=== PATIENT | male | born 1985 | race African-American/Black ===

== ENCOUNTER 2025-10-25 07:42 | Emergency (ER) | payer MEDICAID, OTHER ==
[~2025-10-25] VITALS: Ht 193 cm; Wt 154.9 kg
--- NOTE | 2025-10-25 08:26 | ED.PDOC ---
Musculoskeletal HPI Comments 40 y/o M, presents to the ED for CC of lower extremity pain. Patient states, he was jogging yesterday (10/24/25) and has now been experiencing right knee pain and swelling as a result. Patient endorses, being unable to bear weight onto his right extremity since, commencement of symptoms. Upon arrival to the ED, patient is hypertensive with a blood pressure of 181/133mmHg. Patient denies any trauma, injury, fall, headache, dizziness, or chest pain. No other symptoms or modifying factors are present at this time. Chief Complaint: Lower Extremity Time Seen by MD: 08:05 Reviewed Notes: Nurses Notes, Medications, Allergies Allergies: Coded Allergies: NO KNOWN ALLERGIES (Unverified , 10/25/25) Home Meds Active Scripts Atenolol (Atenolol) 25 Mg Tab, 25 MG PO Q HS for 30 Days, #30 TAB Prov:CHAVO BORJA MD 10/25/25 Olmesartan Medoxomil (Benicar) 20 Mg Tab, 40 MG PO DAILY for 30 Days, #30 TAB Prov:CHAVO BORJA MD 10/25/25 Naproxen (Naproxen) 375 Mg Tab, 500 MG PO BID for 10 Days, #20 TAB Prov:CHAVO BORJA MD 10/25/25 Information Source: Patient Mode of Arrival: Wheelchair Location: Right Extremity Location: Knee Timing: Days Prehospital treatment: None Severity: Moderate Able to Move Extremity: Yes Bear Weight: No Pain: Moderate Circumstances: Sporting Onset of Symptoms: After Trauma Symptoms: Swelling, Pain Associated signs and symptoms: Knee pain Past Medical History PAST MEDICAL HISTORY: Denies Surgical History: Denies all surgeries Surgical History (Other): left shoulder Family History Family History: Unknown Social History Smoker: Non-Smoker Alcohol: Denies ETOH Use Drugs: Marijuana Lives In: Home Constitutional: denies: chills, diaphoresis, fatigue, fever, malaise, sweats, weakness, others EENTM: denies: blurred vision, double vision, ear bleeding, ear discharge, ear drainage, ear pain, ear ringing, eye pain, eye redness, hearing loss, mouth pain, mouth swelling, nasal discharge, nose bleeding, nose congestion, nose pain, photophobia, tearing, throat pain, throat swelling, voice changes, others Respiratory: denies: cough, hemoptysis, orthopnea, SOB at rest, shortness of breath, SOB with excertion, stridor, wheezing, others Cardiovascular: denies: chest pain, dizzy spells, diaphoresis, Dyspnea on exertion, edema, irregular heart beat, left arm pain, lightheadedness, palpitations, PND, syncope, others Gastrointestinal: denies: abdomen distended, abdominal pain, blood streaked bowels, constipated, diarrhea, dysphagia, difficulty swallowing, hematemesis, melena, nausea, poor appetite, poor fluid intake, rectal bleeding, rectal pain, vomiting, others Genitourinary: denies: burning, dysuria, flank pain, frequency, hematuria, incontinence, penile discharge, penile sore, pain, testicle pain, testicle swelling, urgency, others Neurological: denies: dizziness, fainting, headache, left sided numbness, left sided weakness, numbness, paresthesia, pre-existing deficit, right sided numbness, right sided weakness, seizure, speech problems, tingling, tremors, weakness, others Musculoskeletal: reports: others (right knee pain); denies: back pain, gout, joint pain, joint swelling, muscle pain, muscle stiffness, neck pain Integumetry: denies: bruises, change in color, change in hair/nails, dryness, laceration, lesions, lumps, rash, wounds, others Allergic/Immunocompromised: denies: Difficulty Healing, Frequent Infections, Hives, Itching, others Hematologic/Lymphatic: denies: anemia, blood clots, easy bleeding, easy bruising, swollen glands, others Endocrine: denies: excessive hunger, excessive sweating, excessive thirst, excessive urination, flushing, intolerance to cold, intolerance to heat, unexplained weight gain, unexplained weight loss, others Psychiatric: denies: anxiety, bipolar disorder, depression, hopeless, panic disorder, schizophrenia, sleepless, suicidal, others All Other Systems: Reviewed and Negative Physical Exam General Appearance: Moderate Distress, Obese HEENT: Normal ENT Inspection, PERRL/EOMI Neck: Full Range of Motion, Non-Tender, Normal, Normal Inspection Respiratory: Chest Non-Tender, Lungs Clear, No Accessory Muscle Use, No Respiratory Distress, Normal Breath Sounds Cardiovascular: No Edema, No JVD, No Murmur, No Gallop, Normal Peripheral Pulses, Regular Rate/Rhythm Breast Exam: Deferred Gastrointestinal: No Organomegaly, Non Tender, No Pulsatile Mass, Normal Bowel Sounds, Soft Genitalia: Deferred Pelvic: Deferred Rectal: Deferred Extremities: No calf tenderness, Normal capillary refill, Normal inspection, Normal range of motion, Non-tender, No pedal edema, Swelling, Tender, Other (Right knee) Musculoskeletal : Location: Right Extremity Location: Knee Apperance: Swelling, Limited ROM, Tenderness: Moderate, Other (The pain on the right knee mostly supra pateral and medial side) Neurologic: Alert, 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 Was a procedure done?: No Differential Diagnosis EXT Differential Diagnosis: Sprain, DJD, Strain, Bursitis X-Ray, Labs, Meds, VS Vital Signs Date Time Temp Pulse Resp B/P (MAP) Pulse Ox O2 Delivery O2 Flow Rate FiO2 10/25/25 11:26 85 159/82 10/25/25 11:19 98.1 85 18 159/82 (107) 98 98.1 10/25/25 10:57 89 10/25/25 10:24 98.0 84 18 147/110 (122) 96 98.0 10/25/25 10:20 84 183/133 10/25/25 09:30 182/133 10/25/25 08:28 160/91 10/25/25 08:02 98.9 89 18 161/99 (119) 98.9 10/25/25 07:47 97.4 94 18 181/133 96 97.4 Lab Test 10/25/25 10:06 Range/Units White Blood Count 10.0 4.4-10.8 10^3/uL Red Blood Count 4.41 L 4.5-5.90 10^6/uL Hemoglobin 13.8 13.5-17.5 g/dL Hematocrit 39.7 L 41.0-53.0 % Mean Corpuscular Volume 89.9 80.0-100.0 fL Mean Corpuscular Hemoglobin 31.3 28.0-32.0 pg Mean Corpuscular Hemoglobin Concent 34.8 32.0-36.0 g/dL Red Cell Distribution Width 13.0 11.8-14.3 % Platelet Count 240 140-450 10^3/uL Mean Platelet Volume 8.2 6.9-10.8 fL Neutrophils (%) (Auto) 75.6 37.0-80.0 % Lymphocytes (%) (Auto) 18.4 10.0-50.0 % Monocytes (%) (Auto) 5.0 0.0-12.0 % Eosinophils (%) (Auto) 0.5 0.0-7.0 % Basophils (%) (Auto) 0.5 0.0-2.0 % Neutrophils # (Auto) 7.6 1.6-8.6 10 ^3/uL Lymphocytes # (Auto) 1.8 0.4-5.4 10 ^3/uL Monocytes # (Auto) 0.5 0-1.3 10 ^3/uL Eosinophils # (Auto) 0 0-0.8 10 ^3/uL Basophils # (Auto) 0.1 0-0.2 10 ^3/uL Nucleated Red Blood Cells 0.1 % Sodium Level 141 136-145 mmol/L Potassium Level 4.2 3.5-5.1 mmol/L Chloride Level 109 H 98-107 mmol/L Carbon Dioxide Level 24 20-31 mmol/L Anion Gap 8 5-15 Blood Urea Nitrogen 9 9-23 mg/dL Creatinine 1.11 0.700-1.30 mg/dL Glomerular Filtration Rate Calc 87 >90 mL/min BUN/Creatinine Ratio 8.1 L 10.0-20.0 Serum Glucose 104 74-106 mg/dL Calcium Level 9.6 8.7-10.4 mg/dL Magnesium Level 2.1 1.6-2.6 mg/dL Total Bilirubin 1.0 0.2-1.0 mg/dL Aspartate Amino Transferase (AST) 16 13-40 U/L Alanine Aminotransferase (ALT) 25 7-40 U/L Alkaline Phosphatase 129 H 46-116 U/L Total Protein 8.3 H 5.7-8.2 g/dL Albumin 4.6 3.2-4.8 g/dL Current Medications Medications (Trade) Dose Ordered Sig/Mauro Route Start Time Stop Time Status Last Admin Clonidine HCl (Catapres Tablet) 0.2 mg ONCE ONCE PO 10/25/25 08:15 10/25/25 08:16 DC 10/25/25 08:28 Aspirin 162 mg ONCE ONCE PO 10/25/25 09:45 10/25/25 09:46 DC 10/25/25 09:50 Sodium Chloride 1,000 ml @ 150 mls/hr Q6H40M ONCE IV 10/25/25 09:45 10/25/25 16:24 10/25/25 10:11 Labetalol HCl (Labetalol HCl) 20 mg ONCE ONCE IV 10/25/25 09:45 10/25/25 09:46 DC 10/25/25 10:20 [place] [id number] Ph: [phone] DIAGNOSTIC IMAGING Diagnostic Imaging Report : [id number] Signed PATIENT: AYAN BOWENS ACCT: [id number] UNIT: [id number] : 1985 LOC: ER ROOM / BED: / AGE / SEX: 40 / M ADM STATUS: REG ER SERVICE 7 ORDERING PHYSICIAN: CHAVO BORJA MD PROCEDURE(s): RKN3 - R KNEE 3V XRAY REASON: Right knee pain from joging ORDER NUMBER(s): [id number], ACCESSION NUMBER(s): [id number] EXAM: XY R KNEE 3V XRAY INDICATION: Right knee pain from joging TECHNIQUE: 4 radiographic views of the right knee were obtained. COMPARISON: None FINDINGS/IMPRESSION: No acute fracture or dislocations. Moderate knee effusion. Mild diffuse soft tissue edema. No radiographic foreign body. ATED BY: SONIDO MIX MD DICTATED DATE/TIME: 10/25/25855 SIGNED BY: SONIDO MIX MD SIGNED DATE/TIME: 10/25/25855 CC: X-Ray, Labs, Meds, VS Comment Course in a fast track events for X-ray of the knee shows knee effusion and soft tissue swelling CBC normal BNP negative Chest x-ray normal EKG shows normal sinus rhythm at 89 Blood pressure 159/82 Patient we will be discharged room with an Edgardo wrap Time of 1ST Reevaluation: 08:35 Reevaluation 1ST: Unchanged Time of 2ND Reevaluation: 09:22 Reevaluation 2ND: Unchanged Consultation: PCP Patient Education/Counseling: Diagnosis, Treatment, Prognosis, Need For Follow Up Family Education/Counseling: Diagnosis, Treatment, Prognosis, Need For Follow Up, No Family Present Departure 1 Departure Time of Disposition: 09:23 Impression: Primary Impression: Bursitis due to mechanical pressure Additional Impression: Uncontrolled hypertension Disposition: HOME / SELF CARE / HOMELESS Condition: Fair Additional Instructions: [facility] follow-up with your PCP in e-Prescriptions Atenolol (Atenolol) 25 Mg Tab 25 MG PO Q HS for 30 Days, #30 TAB Prov: CHAVO BORJA MD 10/25/25 Olmesartan Medoxomil (Benicar) 20 Mg Tab 40 MG PO DAILY for 30 Days, #30 TAB Prov: CHAVO BORJA MD 10/25/25 Naproxen (Naproxen) 375 Mg Tab 500 MG PO BID for 10 Days, #20 TAB Prov: CHAVO BORJA MD 10/25/25 Discharged With: Self Critical Care Note Critical Care Time?: No Stability Stability form required: No Heart Score Heart Score: Heart Score Response (Comments) Value History N/A 0 EKG N/A 0 Age <45 0 Risk Factors 1 or 2 risk factors 1 Troponin N/A 0 Total 1 I personally scribed for CHAVO BORJA MD ([email or web address]) on 10/25/25 at 08:26. Electronically submitted by Johanna Cervantes ([email or web address]). I personally scribed for CHAVO BORJA MD ([email or web address]) on 10/25/25 at 09:05. Electronically submitted by Johanna Cervantes ([email or web address]). CHAVO BORJA MD Oct 25, 2025 08:26
--- NOTE | 2025-10-25 08:59 | DVH ---
EXAM: XY R KNEE 3V XRAY INDICATION: Right knee pain from joging TECHNIQUE: 4 radiographic views of the right knee were obtained. COMPARISON: None FINDINGS/IMPRESSION: No acute fracture or dislocations. Moderate knee effusion. Mild diffuse soft tissue edema. No radiographic foreign body.
[2025-10-25] MEDS ORDERED: ATEN-60 PO (09:29)
[2025-10-25] MEDS ORDERED: NAPR-957 PO (09:29)
[2025-10-25] MEDS ORDERED: OLME20TA53 PO (09:29)
[2025-10-25] MEDS: SODIUM CHLORIDE 0.9% 1,000 ML IV ONE (10:10)
[2025-10-25 10:15] LABS: Hematocrit 39.7 % (41.0-53.0); Hemoglobin 13.8 g/dL (13.5-17.5); Mean Corpuscular Hemoglobin 31.3 pg (28.0-32.0); Mean Corpuscular Volume 89.9 fL (80.0-100.0); Nucleated Red Blood Cells % 0.1 %
--- NOTE | 2025-10-25 10:19 | DVH ---
CHEST RADIOGRAPH INDICATION: Uncontrolled hypertension TECHNIQUE: Frontal and lateral view of the chest was obtained COMPARISON: None FINDINGS: Lines and Tubes: None Lungs: Clear Pleura: No effusion. No pneumothorax. Cardiomediastinal contours: Unremarkable Bones: Unremarkable IMPRESSION: 1. No evidence of acute disease.
[2025-10-25] MEDS: LABETALOL HCL 20 MG/4 ML VL IV ONE (10:20)
[2025-10-25 10:29] LABS: Alanine Aminotransferase 25 U/L (7-40); Albumin 4.6 g/dL (3.2-4.8); Anion Gap 8 (5-15); BUN/Creatinine Ratio 8.1 (10.0-20.0); Blood Urea Nitrogen 9 mg/dL (9-23); Calcium 9.6 mg/dL (8.7-10.4); Carbon Dioxide 24 mmol/L (20-31); Glucose 104 mg/dL (74-106); Magnesium 2.1 mg/dL (1.6-2.6); Potassium 4.2 mmol/L (3.5-5.1); Sodium 141 mmol/L (136-145)
[2025-10-25 10:30] LABS: Bilirubin, Total 1.0 mg/dL (0.2-1.0)
[2025-10-25 10:34] LABS: Alkaline Phosphatase 129 U/L (46-116); Chloride 109 mmol/L (98-107); Total Protein 8.3 g/dL (5.7-8.2)
--- NOTE | 2025-10-25 10:59 | ECG ---
[facility] Test Date: 2025-10-25 Test Time: 10:57:57 Pat Name: AYAN BOWENS Department: ED Room: Gender: M [employer] Bonder: RADHA : 1985 Requested By: CHAVO BORJA Order Number: [id number] Reading MD: Michael Woods Measurements Intervals [place] Rate: 89 P: 45 [place]: 139 QRS: 17 QRSD: 88 T: -2 QT: 346 QTc: 421 Interpretive Statements Sinus rhythm Borderline T abnormalities, inferior leads Borderline ST elevation, lateral leads Baseline wander in lead(s) V6 Electronically Signed On 10-30-2025 17:42:15 PST by Michael Woods Please click the below link to view image of tracing.
[2025-10-25 11:19] VITALS: BP 159/82; PULSE 85; RESP 18; TEMP 98.1; O2SAT 98
== END 2025-10-25 11:50 | disposition home or self-care (01) ==
LOC: ER 07:42
DX: M70.80 Other soft tissue disorders related to use, overuse and pressure of unspecified site (principal); I10 Essential (primary) hypertension
CPT/HCPCS: 36415; 71046; 73562; 80053; 83735; 85025; 93005; 96374